=== PATIENT | female | born 1985 | race American Indian/Alaskan Native ===

== ENCOUNTER 2020-11-27 10:10 | Outpatient (CLI) | payer OTHER | END 2020-11-27 12:58 | disposition home or self-care (01) | LOC: NST 10:10 | PROVIDERS: ATTEND Obstetrics & Gynecology Maternal & Fetal Medicine | DX: O30.003 Twin pregnancy, unspecified number of placenta and unspecified number of amniotic sacs, third trimester (principal) ==

== ENCOUNTER 2020-12-26 09:37 | Outpatient (CLI) | payer OTHER | END 2020-12-26 10:45 | disposition home or self-care (01) | LOC: NST 09:37 | PROVIDERS: ATTEND Obstetrics & Gynecology Maternal & Fetal Medicine | DX: Z34.83 Encounter for supervision of other normal pregnancy, third trimester (principal) ==

== ENCOUNTER 2021-01-10 09:28 | Outpatient (CLI) | payer OTHER | END 2021-01-10 10:28 | disposition home or self-care (01) | LOC: NST 09:28 | PROVIDERS: ATTEND Obstetrics & Gynecology Maternal & Fetal Medicine | DX: O30.003 Twin pregnancy, unspecified number of placenta and unspecified number of amniotic sacs, third trimester (principal) ==

== ENCOUNTER 2021-01-16 14:23 | Outpatient (CLI) | payer OTHER | END 2021-01-16 14:53 | disposition home or self-care (01) | LOC: NST 14:23 | PROVIDERS: ATTEND Obstetrics & Gynecology Maternal & Fetal Medicine | DX: O30.003 Twin pregnancy, unspecified number of placenta and unspecified number of amniotic sacs, third trimester (principal) ==

== ENCOUNTER 2021-01-22 10:05 | Outpatient (CLI) | payer OTHER | END 2021-01-22 10:30 | disposition home or self-care (01) | LOC: NST 10:05 | PROVIDERS: ATTEND Obstetrics & Gynecology Maternal & Fetal Medicine | DX: Z34.83 Encounter for supervision of other normal pregnancy, third trimester (principal) ==

== ENCOUNTER 2021-02-06 09:41 | Outpatient (CLI) | payer OTHER | END 2021-02-06 13:18 | disposition home or self-care (01) | LOC: NST 09:41 | PROVIDERS: ATTEND Obstetrics & Gynecology | DX: Z34.83 Encounter for supervision of other normal pregnancy, third trimester (principal) ==

== ENCOUNTER 2021-02-13 09:51 | Outpatient (CLI) | payer OTHER | END 2021-02-13 11:29 | disposition home or self-care (01) | LOC: NST 09:51 | PROVIDERS: ATTEND Obstetrics & Gynecology Maternal & Fetal Medicine | DX: Z34.83 Encounter for supervision of other normal pregnancy, third trimester (principal) ==

== ENCOUNTER 2021-02-18 07:30 | Inpatient (IN) | payer OTHER ==
[~2021-02-18] VITALS: Ht 172.7 cm; Wt 2.3 kg
== END 2021-02-21 14:32 | disposition home or self-care (01) | DRG 788 ==
LOC: OB/GYN 07:30 → LDR 10:23 → O/R 13:56 → OB/GYN 16:05
PROVIDERS: ADMIT Obstetrics & Gynecology Maternal & Fetal Medicine; ATTEND Obstetrics & Gynecology Maternal & Fetal Medicine
PROC: 4A1HXFZ Monitoring of Products of Conception, Cardiac Rhythm, External Approach (ICD-10-PCS; 2021-02-18)
PROC: 10D00Z1 Extraction of Products of Conception, Low, Open Approach (ICD-10-PCS; principal; 2021-02-18 14:45)
DX: O64.1XX1 Obstructed labor due to breech presentation, fetus 1 (principal); O64.1XX2 Obstructed labor due to breech presentation, fetus 2; O30.003 Twin pregnancy, unspecified number of placenta and unspecified number of amniotic sacs, third trimester; Z37.2 Twins, both liveborn; Z3A.37 37 weeks gestation of pregnancy